=== PATIENT | female | born 1965 | race Caucasian/White ===

== ENCOUNTER 2020-07-25 08:28 | Day surgery (SDC) | payer BC ==
--- OUTSIDE RECORDS SUMMARY | 2020-07-25 08:56 | XMS REPORT | Continuity of Care Document ---
:1965 Author Organization [facility] Brendan [employer] [place] Care Team Providers Name Role Phone [facility] Gravelly [employer] [place] Unavailable Un available Problems Problem Status Onset Classification Date Comments Sourc e Date Reported Hydronephrosis Active Problem 09/05/2019 M edical (disorder) Group Simple obesity Active Problem 09/05/2019 M edical (disorder) Group Medications Medication Details Route Status Patient Ordering Order Source Instructions Provider Date potassium chloride 10 0 Active MH mEq oral capsule, Refill(s) 019 Medi nafisa extended release Group Levothyroxine Sodium 0 Active MH 0.05 MG Oral Tablet Refill(s) 019 Me dical [Synthroid] Group losartan 50 mg oral 0 Active MH tablet Refill(s) 019 Medical Group Hydrochlorothiazide 0 Active MH 50 MG Oral Tablet Refill(s) 019 Medi nafisa Group Metformin 0 Active MH hydrochloride 1000 MG Refill(s) 019 Medical Oral Tablet Group 24 HR Metoprolol 0 Active MH Tartrate 100 MG Refill(s) 019 Medica l Extended Release Group Tablet [Toprol] Allergies, Adverse Reactions, Alerts Substance Category Reaction Severity Reaction Status Date Comments S ource type Reported No Known Assertion Drug Medication allergy Medic al Allergies Group Immunizations No Data Provided for This Section Results No Data Provided for This Section Pathology Reports No Data Provided for This Section Diagnostic Reports No Data Provided for This Section Consultation Notes No Data Provided for This Section Discharge Summaries No Data Provided for This Section History and Physicals No Data Provided for This Section Vital Signs Vital Sign Value Date Comments Source Height 162.56 cm 09/02/2019 [facility] Weight 79.545 09/02/2019 [facility] BMI Calculated 30.1 09/02/2019 Medical Gr oup Encounters Location Location Encounter Encounter Reason Attending ADM ID Stat Source Details Type Number For Provider Date Date Visit Outpatient [id number] Mera 09/02 [facility] Multi Outpatient [id number] Mera 09/02 09/03 [facility] Procedures Procedure Code Date Perfomer Comments Source Tonsillectomy [id number] Medical Group Assessment and Plan No Data Provided for This Section Plan of Care No Data Provided for This Section Social History Social History Date Source Social History TypeResponse 09/02/2019 Medical G roup Smoking Status Former smoker; Ready to change: No; Conc erns about tobacco use in household: No; Exposure to Tobacco Smoke None; Cigarette Smoking Last 365 Days No; Reg Smoking Cessation Counseling No entered on: 09/02/19 Family History No Data Provided for This Section Advance Directives No Data Provided for This Section Functional Status No Data Provided for This Section
--- OUTSIDE RECORDS SUMMARY | 2020-07-25 08:56 | XMS REPORT ---
:1965 Author Organization [facility] Address [address] [place] [address] Care Team Providers Name Role Phone Lakesha Unavailable [phone] PROBLEMS Type Condition ICD9-CM GOO33-PY Onset Condition SNOMED Code Notes Code Code Dates Status Problem Acquired E03.9 Active 645542258 hypothyroidism Problem Screening for Z12.11 Active 866803174 colon cancer Problem Type 2 diabetes E11.9 Active 661335088 mellitus without complication, unspecified whether usp insulin use Problem Seasonal allergic J30.2 Active 867954529 rhinitis, unspecified trigger Problem Hyperlipidemia, E78.5 Active 92853814 unspecified hyperlipidemia type Problem Essential I10 Active 28384759 (primary) hypertension ALLERGIES Allergen (clinical drug Drug/Non Drug Allergy Reaction Allergy Type Onset Date Status ingredient) documented on EMR lisinopril Lisinopril(ND Cough Drug Allergy Active Code:[address]-84) amlodipine / valsartan Amlodipine Swelling Drug Allergy Active Besylate-Valsartan([facility] Code:[address]-27) ENCOUNTERS from 1965 to 2020-07-13 Encounter Location Date Provider Diagnosis [facility] [address] Jun, Ariadna morelos for colon Family Medicine [address], [place] [address] [place] [address] IMMUNIZATIONS No Information SOCIAL HISTORY Tobacco Use: Social History Observation Description Date Details (start date - stop date) Former Smoker Sex Assigned At : Social History Observation Description Sex Assigned At Unknown Tobacco Use/Smoking Question Answer Notes Are you a former smoker REASON FOR REFERRAL No Information VITAL SIGNS No information MEDICATIONS Medication SIG (Take, Route, Start Date End Date Status Frequency, Duration) Potassium Chloride ER 10 MEQ 1 tablet with food Orally Active Twice a day for 30 day(s) Metformin HCl 1000 MG 1 tablet with meals Mar, Active Orally Twice a day for 90 days Metoprolol Succinate ER 100 MG TAKE 1 TABLET DAILY Active Toprol XL 100 MG 1 tablet Orally Once a A ctive day for 90 days Co Q 10 100 MG 1 capsule with a meal Acti ve Orally Once a day for 30 day(s) Hydrochlorothiazide 50 MG TAKE 1 TABLET DAILY Active Losartan Potassium 50 MG TAKE 1 TABLET DAILY Active Levothyroxine Sodium 50 MCG TAKE 1 TABLET DAILY IN Active THE MORNING ON AN EMPTY STOMACH for 30 Red Yeast Rice 600 MG as directed Orally Active PROCEDURES No Information RESULTS No Results REASON FOR VISIT ? colonscopy MEDICAL (GENERAL) HISTORY Type Description Date Medical History Hyperlipidemia, unspecified hyperlipidem ia type Medical History Seasonal allergic rhinitis, unspecified trigger Medical History Essential (primary) hypertension Medical History Acquired hypothyroidism Medical History Uterine leiomyoma, unspecified location Medical History Abnormal results of liver function studi es Medical History Cramp in muscle Medical History Type 2 diabetes mellitus without complic ation, unspecified whether roasterman insulin use Medical History Uterine leiomyoma, unspecified location Medical History Abnormal results of liver function studi es Medical History Cramp in muscle Medical History Screening for breast cancer Surgical History Tonsilectomey 1974 Goals Section No Information Health Concerns No Information MEDICAL EQUIPMENT No Information MENTAL STATUS No Information FUNCTIONAL STATUS No Information ASSESSMENTS Encounter Date Diagnosis Notes Jun, Screening for colon cancer (ICD-10 - Z12 .11) PLAN OF TREATMENT Medication Medication Name Sig Start Date Stop Date Hydrochlorothiazide 50 MG TAKE 1 TABLET DAILY Losartan Potassium 50 MG TAKE 1 TABLET DAILY Metoprolol Succinate ER 100 MG TAKE 1 TABLET DAILY Levothyroxine Sodium 50 MCG TAKE 1 TABLET DAILY IN THE MORNING ON AN EMPTY STOMACH for 30 Next Appt Details Provider Name:Ariadna Crowder, 2020-09-21 10 :20:00 AM, [address] [facility], [address], [place], [address], Insurance Providers Payer Name Payer Payer Insured Name Patient Coverage Covera ge End Address Phone Relationship to Start Date Lon e Insured [employer] [phone] Moses Gutiérrez and [place] [id number] [facility] [id number]
--- OUTSIDE RECORDS SUMMARY | 2020-07-25 08:56 | XMS REPORT | Continuity of Care Document ---
:1965 Author Organization [facility] t Address [address] [place] [address] Care Team Providers Name Role Phone Bobo Caballero Attending Clinician Problems Condition Condition Condition Status Onset Resolution Last Treating Co mments Source Name Details Category Date Date Treatment Clinician Date Hydronephr Problem Active 2019-09-05 M emoria osis 01:49:34 l (disorder) Ifeanyi n Hydronephr osis (disorder) Active Problem 09/05/2019 Medical Group Simple Problem Active 2019-09-05 Memor ia obesity 01:49:34 l (disorder) Simple Herm maria alejandra obesity (disorder) Active Problem 09/05/2019 Medical Group Allergies, Adverse Reactions, Alerts Allergy Allergy Status Severity Reaction(s) Onset Inactive Treating Comm ents Source Name Type Date Date Clinician Lisinopr Adverse [facility]ough [facility] Amlodipi Adverse Active Swelling [facility] Bes[facility] -[facility]art [facility] No Known No Known Active Memori a Medicati Medicati l on on Brendan Finch s s Social History Smoking Status Start Date Stop Date Source Social History 2019-09-02 16:00:14 2019-09-02 16:00:14 Onelia Cardona Medications Ordered Filled Start Stop Current Ordering Indication Dosage Frequency Signature Comments Components Source Medication Medication Date Date Medication? Clinician (SIG) Name Name potassium 2018-09 Yes 0 Memoria chloride 10 2-18 Refill(s) l mEq oral 16:00: Allen capsule, 00 extended release Levothyroxi 2018-09 Yes 0 Memori a ne Sodium 2-18 Refill(s) l 0.05 MG 16:00: Allen Oral Tablet 00 [Synthroid] losartan 50 2018-09 Yes 0 Memori a mg oral 2-18 Refill(s) l tablet 16:00: Allen 00 Hydrochloro 2018-09 Yes 0 Memori a thiazide 50 2-18 Refill(s) l MG Oral 16:00: Allen Tablet 00 Metformin 2018-09 Yes 0 Memoria hydrochlori 2-18 Refill(s) l de 1000 MG 16:00: Brendan Oral Tablet 00 24 HR 2018-09 Yes 0 Memoria Metoprolol 2-18 Refill(s) l Tartrate 16:00: Brendan 100 MG 00 Extended Release Tablet [Toprol] Losartan Losartan Yes Ariadna [address] [facility] Potassium Potassium 9-21 [facility] - 00:00: [facility] 00 [facility] Levothyroxi Levothyroxi Yes Ariadna [address] [facility] ne Sodium ne Sodium 7-07 [facility] on an [place] es - 00:00: empty Memoria 00 stomach in l the Outpat[facility] morning ent Clinics Metformin Metformin Yes Ariadna [address] [facility] HCl HCl 7-07 [facility] with meals [facility] - 00:[facility]: [facility] Toprol XL Toprol XL Yes Ariadna [address] [facility] Hydrochloro Hydrochloro Yes Ariadna take one [facility] thiazide thiazide [facility] tablet by L ukes - mouth once [facility]oria daily l [facility] Red Yeast Red Yeast Yes Ariadna as [facility] Rice Rice [facility] directed [facility] Co Q 10 Co Q 10 Yes Ariadna [address] [facility] with a [facility] - meal [facility] Potassium Potassium Yes Ariadna [address] [facility] Chloride ER Chloride ER [facility] with food [facility] Vital Signs Vital Name Observation Time Observation Value Comments Source Height 2019-09-02 15:57:00 162.56 cm [facility] Brendan Weight 2019-09-02 15:57:00 [facility] Brendan BMI Calculated 2019-09-02 15:57:00 Memori al Brendan Procedures Procedure Date / Time Performed Performing Clinician [facility] Tonsillect[facility] Encounters Start End Encounter Admission Attending Care Care Encounter Source Date/Time Date/Time Type Type Clinicians Facility Department ID 2020-07-13 2020-07-13 [facility] [id number] 2020-03-23 2020-03-23 [facility] [id number] [facility] 11:40[facility]00 11:40:00 [facility] Outpati ent Clinics 2019-09-23 2019-09-23 [facility] [id number] 11:40:00 11:40:00 [facility] Outpati ent Clinics 2019-09-02 2019-09-02 Outpatient ANNIE Caballero [facility] [id number] 09:40:00 23:59:59 Mera L 00 2019-04-21 2019-04-21 [facility] [id number] [facility] 11[facility]27:00 11:27:00 [facility] Outpati ent Clinics 2019-04-07 2019-04-07 [facility] [id number] 13:46:00 13:46:00 [facility] Medicine Outpati ent Clinics 2019-03-25 2019-03-25 [facility] [id number] 11:40:00 11:40:00 [facility] Medicine Outpati ent Clinics 2018-12-16 2018-12-16 [facility] [id number] 11:58:00 11:58:00 [facility] Medicine Outpati ent Clinics 2018-12-12 2018-12-12 [facility] [id number] 15:04:00 15:04:00 [facility] Medicine Outpati ent Clinics 2018-11-18 2018-11-18 [facility] [id number] [address] 13[facility]30[facility]00 13:30:00 [facility] 2018-06-05 2018-06-05 Outpatient Johnathon Pineda [id number] [address] 10:28:00 10:28:00 [facility] Clinics 2018-06-02 2018-06-02 Outpatient Johnathon Pineda [id number] 13:00:00 13:00:00 [facility] Clinics Results This patient has no known results.
[2020-07-25] MEDS ORDERED: NA CHLORIDE 0.9% 1,000 ML ONE (09:06)
[2020-07-25] MEDS ORDERED: propofoL 200 MG/20 ML VIAL IV ONE ×2 (10:08)
--- NOTE | 2020-07-25 10:43 | ENDO RPT ---
[address], [address] COLONOSCOPY PROCEDURE REPORT EXAM DATE: 07/25/2020 PATIENT NAME: Caron Gutiérrez MR #: [id number] BIRTHDATE: 1965 ATTENDING: Paco Conroy DR STATUS: outpatient FINISHING TECHNICIAN: Dawit Evans and Carmencita Alvarado RN INDICATIONS: The patient is a 54 yr old Female here for a colonoscopy due to colon cancer screening PROCEDURE PERFORMED: Screening Colonoscopy MEDICATIONS: Per Anesthesia. ESTIMATED BLOOD LOSS: None CONSENT: The patient understands the risks and benefits of the procedure and understands that these risks include, but are not limited to: sedation, allergic reaction, infection, perforation and/or bleeding. Alternative means of evaluation and treatment include, among others: physical exam, x-rays, and/or surgical intervention. The patient elects to proceed with this endoscopic procedure. DESCRIPTION OF PROCEDURE: During intra-op preparation period all mechanical medical equipment was checked for proper function. Hand hygiene and appropriate measures for infection prevention was taken. Procedure, possible complications, alternatives including, but not limited to possibility of bleeding, perforation, tear, infection, sepsis, need for surgery, need for blood transfusion, were explained to the patient. After the risks, benefits and alternatives of the procedure were thoroughly explained, Informed consent was verified, confirmed and timeout was successfully executed by the treatment team. The patient was placed in the left lateral position. A digital rectal exam was performed and revealed internal hemorrhoids. After appropriate level of anesthesia, the scope was passed. The [id number] ([id number]) endoscope was introduced through the anus and advanced to the cecum, which was identified by both the appendix and ileocecal valve. The quality of the prep was fair. The instrument was then slowly withdrawn as the colon was fully examined. Scope withdrawal time was 9 minutes. COLON FINDINGS: Moderate sized internal hemorrhoids were found. The colon mucosa was otherwise normal. Retroflexed views revealed no abnormalities. The scope was then completely withdrawn from the patient and the procedure terminated. ADVERSE EVENTS: There were no complications. IMPRESSIONS: 1. Moderate sized internal hemorrhoids 2. The colon mucosa was otherwise normal RECOMMENDATIONS: 1. fiber rich diet 2. Monitor for any evidence of rectal bleeding. 3. hemorrhoidal hygiene 4. yearly hemoccult starting in 4 years RECALL: Return in 10 year(s) for Colonoscopy. Fecal FIT test in 4 years Stool blood testing annually Paco Conroy DR eSigned: Paco Conroy DR 07/25/2020 10:42 AM cc: CPT CODES: ICD9 CODES:
[2020-07-25 10:53] VITALS: TEMP 97.2
[2020-07-25 11:10] VITALS: BP 120/84; O2SAT 98
== END 2020-07-25 11:13 | disposition home or self-care (01) ==
LOC: OR 08:28
PROVIDERS: ATTEND Surgery
PROC: 0DJD8ZZ Inspection of Lower Intestinal Tract, Via Natural or Artificial Opening Endoscopic (ICD-10-PCS; principal; 2020-07-25 10:00)
DX: Z12.11 Encounter for screening for malignant neoplasm of colon (principal); K64.8 Other hemorrhoids; Z20.828 Contact with and (suspected) exposure to other viral communicable diseases
CPT/HCPCS: 45378; 82947; U0002; J2704 ×2; J7030